=== PATIENT | female | born 1985 | race Caucasian/White ===

== ENCOUNTER → 2017-01-05 | Outpatient (CLI) | payer OTHER, MEDICAID ==
[~2017-01-05] MED LIST: DOCU240C40 PO; HYDR-4246 PO; IBUP-1547 PO; OMEP20TA2 PO; PNV91TAB3 PO; POLY17PO6 PO
--- NOTE | 2017-01-06 08:25 | DI ---
Indication: ITS.REASON: M25.572 LEFT LATERAL ANKLE PAIN PROCEDURE: ANKLE LEFT 3 VIEW: Encounter: Initial Comparison: None Findings: There is no acute fracture, dislocation or malalignment identified. Mild lateral soft tissue swelling. Impression: No acute osseous abnormality. .
--- NOTE | 2017-01-06 08:26 | DI ---
Indication: ITS.REASON: M79.672 LEFT FOOT PAIN PROCEDURE: FOOT LEFT 3 VIEWS: Encounter: Initial Comparison: None Findings: There is no acute fracture, dislocation or malalignment identified. Impression: No acute osseous abnormality. .
== END ==
LOC: IMA 17:39
PROVIDERS: ATTEND Registered Nurse
DX: M79.89 Other specified soft tissue disorders (principal); Z91.81 History of falling; M25.572 Pain in left ankle and joints of left foot; M79.672 Pain in left foot

== ENCOUNTER → 2017-01-08 | Outpatient (CLI) | payer OTHER, MEDICAID ==
--- NOTE | 2017-01-08 08:48 | DI ---
Indication: ITS.REASON: LEFT LATERAL ANKLE PAIN recent fall with generalized ankle pain, worse laterally PROCEDURE: MRI ANKLE LEFT W/O CONTRAST: Encounter: Initial Comparison: Left ankle radiographs dated January 05, 2017 Technique: Multiplanar multisequence MR imaging of the left ankle was performed without contrast. FINDINGS: The Achilles tendon is normal in morphology and signal. Extensor tendons are normal. The posterior tibialis, flexor digitorum, and flexor hallucis longus tendons are normal. The peroneus longus and brevis tendons are normal. The deltoid ligament is intact. The anterior talofibular ligament is completely torn. The calcaneofibular, and posterior talofibular ligaments are intact. The anterior tibiofibular ligament appears at least partially torn. The plantar fascia is normal. Bone marrow signal is unremarkable. Mild lateral soft tissue edema. Probable mild strain in the extensor digitorum musculature. IMPRESSION: Complete tear of the anterior talofibular ligament and at least partial tearing of the anterior tibiofibular ligament. .
== END ==
LOC: IMA 06:22
PROVIDERS: ATTEND Registered Nurse
DX: M25.572 Pain in left ankle and joints of left foot (principal)